=== PATIENT | female | born 1970 | race African-American/Black ===

== ENCOUNTER 2023-04-10 08:28 | Emergency (ER) | payer MEDICARE, MEDICAID ==
[~2023-04-10] VITALS: Ht 167.6 cm; Wt 73.0 kg
[2023-04-10] MEDS ORDERED: OLANZAPINE 10 MG/VIAL IM STA (08:35)
[2023-04-10] MEDS ORDERED: LORAZEPAM 2MG/ML CPJ IM STA (08:35)
[2023-04-10 09:00] VITALS: O2SAT 0
[2023-04-10 10:43] LABS: BASOPHILS % 0.9 % (0.0-2.0); EOSINOPHILS % 1.4 % (0.0-5.0); HEMATOCRIT. 36.3 % (36.0-48.0); HEMOGLOBIN. 11.8 g/dL (12.0-16.0); LYMPHOCYTES % 19.9 % (20.0-50.0); MEAN CORPUSCULAR HEMOGLOBIN 27.6 pg (28.0-32.0); MEAN CORPUSCULAR VOLUME 85.3 fL (81.0-99.0); MEAN PLATELET VOLUME 7.3 fl (7.4-10.4); MONOCYTES % 9.7 % (2.0-8.0); NEUTROPHILS % 68.1 % (40.0-76.0); PLATELET 317 x1000/uL (130-400); RED BLOOD CELL COUNT 4.25 mill/uL (4.2-5.4); RED CELL DISTRIBUTION WIDTH 14.8 % (11.6-14.6)
[2023-04-10 10:50] LABS: CHLORIDE 111 mEq/L (98-107)
[2023-04-10 10:58] LABS: ETHANOL BLOOD 112 mg/dL (-10)
[2023-04-10 12:35] LABS: CLARITY URINE CLEAR (CLEAR); COLOR URINE YELLOW (YELLOW); KETONES URINE NEGATIVE (NEGATIVE); LEUKOCYTE ESTERASE URINE NEGATIVE (NEGATIVE); NITRITE URINE NEGATIVE (NEGATIVE); OCCULT BLOOD URINE NEGATIVE (NEGATIVE); PROTEIN URINE NEGATIVE (NEGATIVE); SPECIFIC GRAVITY URINE 1.006 (1.005-1.030); UROBILINOGEN URINE 0.2 E.U./dL (0.2-1.0)
[2023-04-10 13:35] LABS: *AMPHETAMINES SCREEN URINE NEGATIVE (NEGATIVE); *BARBITURATES SCREEN URINE NEGATIVE (NEGATIVE); *BENZODIAZEPINES SCREEN URINE NEGATIVE (NEGATIVE); *COCAINE SCREEN URINE NEGATIVE (NEGATIVE); CANNABINOID URINE SCREEN PRESUMTIVE POSITIVE (NEGATIVE); METHADONE URINE SCREEN NEGATIVE (NEGATIVE); OPIATES URINE SCREEN NEGATIVE (NEGATIVE); PHENCYCLIDINE URINE SCREEN NEGATIVE (NEGATIVE)
[2023-04-10] MEDS ORDERED: METOPROLOL TARTRATE 25MG TABLET PO ONE ×2 (20:30→23:15)
[2023-04-10] MEDS ORDERED: LORAZEPAM 2MG/ML CPJ IM ONE (21:15)
[2023-04-10] MEDS ORDERED: HYDRALAZINE 20MG/ML VIAL IV ONE (21:45)
[2023-04-10] MEDS ORDERED: OLANZAPINE 10 MG/VIAL IM ONE (22:15)
[2023-04-10 23:40] VITALS: BP 149/78; PULSE 80; RESP 18; TEMP 98
== END 2023-04-10 23:47 ==
LOC: ER 08:28
DX: R45.6 Violent behavior (principal); F20.9 Schizophrenia, unspecified; Z20.822 Contact with and (suspected) exposure to COVID-19
CPT/HCPCS: 80053; 80305; 81003; 81025; 80320; 82962; 85025; 36415; 96372; 99285; 87426; J3490; J2060; C9803; G0480